=== PATIENT | male | born 1960 | race Caucasian/White ===

== ENCOUNTER 2018-06-10 06:30 | Day surgery (SDC) | payer BC ==
[~2018-06-10] VITALS: Ht 177.8 cm; Wt 154.2 kg
--- NOTE | ~2018-06-10 | OR ---
[facility] [address] [place], [place] [address] Draft DATE OF OPERATION: 06/10/2018 SURGEON: Vega Saldaña MD PREOPERATIVE DIAGNOSES: 1. Personal history of colonic polyps in 2008. 2. Diverticulosis. 3. Internal hemorrhoids. POSTOPERATIVE DIAGNOSES: 1. A 3-10 mm polyps at distal right colon, distal hepatic flexure 90 cm, 78 cm, 32 cm, 22 cm, base at 20 cm and 10 cm. 2. Moderate internal and external hemorrhoids. 3. Minimal to moderate sigmoid diverticulosis. PROCEDURE: Colonoscopy with snare polypectomy at 78 and 20 cm and hot biopsy. ESTIMATED BLOOD LOSS: None. INDICATIONS: Julia is a 57-year-old gentleman with a body mass index of 49. He has colonic polyps back to 2008. He is known to have diverticulosis and internal hemorrhoids. He returns now for followup colonoscopy. He has no lower GI complaints. There is no family history of colon cancer or polyps. In the office, I gave Julia a pamphlet on colonoscopy. Of course, he is quite familiar with that. His last colonoscopy was in 2012. He understands there is risk including, but not limited to gas bloating, crampy abdominal pain, bleeding, perforation, requiring surgery, and missed diagnosis. He also understands the need for IV conscious sedation. He has done well with Versed and fentanyl in the past. He had expressed understanding and wished to proceed. PROCEDURE NOTE: Julia was taken into our endoscopy suite and placed in the left lateral decubitus position. He was given divided doses of 8 mg of Versed and 150 mcg of fentanyl to cover the case. A digital rectal exam was performed. He does have moderate bilateral external hemorrhoids. He had good sphincter tone. I could reach the bottom one-third, maybe one-half of his prostate. It is slightly enlarged and indurated. I did not specifically feel a dominant nodule. After this, the adult colonoscope was introduced and advanced all around into the cecum under direct visualization of camera without PATIENT NAME: JULIA CRISOSTOMO JR OPERATIVE REPORT DATE OF : 56 REPORT #: [id number] PHYSICIAN: VEGA SALDAÑA MD PCP: CLEMENTINA JACOBS MD REPORT IS CONFIDENTIAL AND NOT TO BE RELEASED WITHOUT AUTHORIZATION [facility] [address] [place], [place] [address] Draft difficulty. His prep was overall good. There were a couple of areas of liquid stool, most of that was suctioned out. The scope was then slowly withdrawn. We removed the above mentioned polyps with the help of hot biopsy forceps. We did use our snare at 78 cm and 22 cm. In addition, we did see the diverticulosis in the distal left colon and sigmoid colon. They were minimal to moderate in size, minimal to moderate in number, and scattered about. Once in the rectum, the scope had been retroflexed and he did have some small internal hemorrhoids as well. After this, the gas was suctioned out and colonoscope removed. Julia tolerated the procedure quite well. RECOMMENDATIONS: I will see Julia back in my office in 7 to 14 days to review his results. Vega Saldaña MD ALB/MODL /[id number] cc: MD Chriss Swanson MD John Sislow, MD Copies: VEGA SALDAÑA MD, KEVIN R MD SISLOW, JOHN MD ~ PATIENT NAME: JULIA CRISOSTOMO OPERATIVE REPORT DATE OF : 56 REPORT #: [id number] PHYSICIAN: VEGA SALDAÑA MD PCP: CLEMENTINA JACOBS MD REPORT IS CONFIDENTIAL AND NOT TO BE RELEASED WITHOUT AUTHORIZATION
[~2018-06-10 06:30] MED LIST: ALLOPURINOL300 MG PO; AMLODIPINE BESY10 MG PO; BENICAR HCT 401 EACH PO; CELEBREX200 MG PO; CLONIDINE HCL0.1 MG PO; LEVOTHYROXINE75 MCG PO; TADALAFIL5 M1 PO
[2018-06-10] MEDS ORDERED: LOSARTAN-HCTZ1 EAC2 PO (06:58)
[2018-06-10] MEDS ORDERED: CELEBREX100 MG PO (07:08)
--- NOTE | 2018-06-10 09:16 | NUR ---
06/10/18 0916 Sara Tatum 0817- PT ARRIVES TO PACU ALERT AND ORIENTED. PT REPORTS INTERMITTENT GAS PAINS, CURRENTLY IS NOT REPORTING ANY PAIN OR NAUSEA. RESP EVEN AND UNLABORED. OXYGEN SAT MID 90'S ON 2L VIA NC. 0818- PT IS ABLE TO ROLL HIMSELF TO HIS BACK. TOLERATED WELL. 0822- OXYGEN TURNED OFF. 0827- PT SAT UP IN BED. TOLERATED WELL. REPORTS NO DIZZINESS, NAUSEA, OR PAIN. 0830- PT IS DRINKING WATER. TOLERATING WELL. 0847- PT'S AT THE BEDSIDE. 0849- PT SITTING ON THE EDGE OF THE BED. PT REPORTS NO DIZZINESS, NAUSEA, OR PAIN. 0852- PT IS DRESSING HIMSELF WITH HIS AT THE BEDSIDE. TOLERATING WELL. 0855- PT PASSING A LOT OF FLATUS.
== END 2018-06-10 08:57 | disposition home or self-care (01) ==
LOC: OPS 06:30 → DS 06:30 → OPS 06:45 → DS 06:45 → OPS 08:57 → DS 09:45
PROVIDERS: Colon & Rectal Surgery
PROC: 0DBF8ZZ Excision of Right Large Intestine, Via Natural or Artificial Opening Endoscopic (ICD-10-PCS; 2018-06-10)
PROC: 0DBE8ZZ Excision of Large Intestine, Via Natural or Artificial Opening Endoscopic (ICD-10-PCS; 2018-06-10)
PROC: 0DBL8ZZ Excision of Transverse Colon, Via Natural or Artificial Opening Endoscopic (ICD-10-PCS; principal; 2018-06-10 06:45)
DX: Z12.11 Encounter for screening for malignant neoplasm of colon (principal); D12.3 Benign neoplasm of transverse colon; K51.40 Inflammatory polyps of colon without complications; D12.6 Benign neoplasm of colon, unspecified; K64.8 Other hemorrhoids; K64.4 Residual hemorrhoidal skin tags; K57.30 Diverticulosis of large intestine without perforation or abscess without bleeding; I10 Essential (primary) hypertension; K21.9 Gastro-esophageal reflux disease without esophagitis; G47.30 Sleep apnea, unspecified; M19.90 Unspecified osteoarthritis, unspecified site; L40.9 Psoriasis, unspecified; Z86.010 Personal history of colon polyps; Z98.890 Other specified postprocedural states; Z79.899 Other long term (current) drug therapy
CPT/HCPCS: 99153; G0500; J2250; J3010; J7120

== ENCOUNTER 2021-08-08 07:18 | Day surgery (SDC) | payer BC ==
[~2021-08-08] VITALS: Ht 180.3 cm; Wt 150.0 kg
[~2021-08-08 07:18] MED LIST changes: +CELEBREX100 MG PO; +LOSARTAN-HCTZ1 EAC2 PO
[2021-08-08] MEDS ORDERED: HYDROCODON-ACE1 EAC8 PO (07:43)
[2021-08-08] MEDS ORDERED: DOXYCYCLINE MON50 M1 PO (07:43)
[2021-08-08] MEDS ORDERED: FINASTERIDE5 MG PO (07:44)
[2021-08-08] MEDS ORDERED: TADALAFIL5 M1 PO (07:44)
[2021-08-08] MEDS ORDERED: ADULT LOW DOSE81 MG PO (07:45)
[2021-08-08] MEDS ORDERED: CANDICIDAL CAP1 EACH PO (07:45)
--- NOTE | 2021-08-08 08:52 | NUR ---
08/08/21 0852 Aruna Wolff 0866-PT TO PACU IN LL POSITION. EYES OPEN. PT ASKING QUESTIONS ABOUT PROCEDURE. BREATHING EASY AND UNLABORED. SPO2 >95% ON 3 L O2 VIA NASAL CANULA. PT DENIES PAIN AND NAUSEA. PT EDUCATED ABOUT POC IN PACU AND TO PASS GAS.
--- NOTE | 2021-08-09 08:49 | OR ---
[facility] [address] [place], [place] [address] Signed DATE OF OPERATION: 08/08/2021 SURGEON: Vega Saldaña MD PREOPERATIVE DIAGNOSES: 1. Personal history of colonic polyps 2008. 2. Moderate internal and external hemorrhoids. 3. Diverticulosis. 4. Chronic diarrhea. POSTOPERATIVE DIAGNOSES: 1. Moderate internal and external hemorrhoids. 2. Minimal to moderate diverticulosis. 3. A 4 mm polyp at 8 cm. PROCEDURE: Colonoscopy with hot biopsy. ESTIMATED BLOOD LOSS: None. INDICATIONS: Julia is a 61-year-old obese gentleman, asked to see me for a followup colonoscopy. I helped him with the initial colonoscopy in 2008. He had serrated adenomatous polyp along with internal hemorrhoids and diverticulosis. He returned in five years in 2012 and had hyperplastic polyps with his diverticulosis. He came back again in 2019 and had a villous adenomatous polyp removed at 22 cm along with tubular adenomatous polyps and hyperplastic polyps. Once again, he had internal hemorrhoids and external hemorrhoids with diverticulosis. He always does well with Versed and fentanyl. We asked him to follow up in three years. He said his chronic diarrhea is well controlled with colestipol. He remains obese and has TMJ. He does use CPAP mask. Nevertheless, he does well with Versed and fentanyl each time. He did that again today. He has no family history of colon cancer or polyps. [place] always comes with him to take him home. In the office, I gave him a pamphlet on colonoscopy. He recalls that adenomatous polyps can grow and become cancers over 8-12 years. He spends a significant amount of time on the Internet reading that has made himself very familiar with colonoscopy versus other modes of screening. Given his situation, he needs to maintain a five-year rotation due to his polyps. He is aware there is risk including, but not limited to gas bloating, crampy abdominal pain, bleeding, perforation requiring surgery, and missed diagnosis. He had expressed Electronically Signed By: VEGA SALDAÑA MD 08/09/21 0849 PATIENT NAME: JULIA CRISOSTOMO JR OPERATIVE REPORT DATE OF : 56 REPORT #: [id number] PHYSICIAN: VEGA SALDAÑA MD PCP: ADRIENNE FERNANDEZ MD REPORT IS CONFIDENTIAL AND NOT TO BE RELEASED WITHOUT AUTHORIZATION [address] [address] Signed understanding and wished to proceed. PROCEDURE NOTE: Julia was taken into our endoscopy suite and placed in the left lateral decubitus position. He was given IV sedation with 9 mg of Versed and 150 mcg of fentanyl. He generally wakes up well, but also does well throughout the procedure. A digital rectal exam was performed. He does have moderate-sized external hemorrhoids. He is a large man I really did not feel much with respect to the prostate. The adult colonoscope was introduced and advanced under direct visualization of camera without difficulty. It took a little extra sedation in order to get into the cecum itself. We could easily see the appendiceal orifice and ileocecal valve. We took pictures throughout for photodocumentation. He has diverticula all the way from the proximal transverse colon down to the sigmoid colon. They were moderate in size, few to moderate in number, and scattered about. He had one small 4 mm polyp in his rectum, which we removed with the help of a hot biopsy forceps. Upon retroflexion of scope, he has the minimal to moderate internal hemorrhoid columns. After this, the gas was suctioned out and colonoscope removed. Julia tolerated the procedure quite well. RECOMMENDATIONS: I will see Julia back in my office in 7 to 14 days to review his results. He will need to stay on the five-year rotation. Vega Saldaña MD ALB/MODL /[id number] cc: MD Adrienne Swanson MD Copies: VEGA SALDAÑA MD Electronically Signed By: VEGA SALDAÑA MD 08/09/21 0849 PATIENT NAME: JULIA CRISOSTOMO JR OPERATIVE REPORT DATE OF : 56 REPORT #: [id number] PHYSICIAN: VEGA SALDAÑA MD PCP: ADRIENNE FERNANDEZ MD REPORT IS CONFIDENTIAL AND NOT TO BE RELEASED WITHOUT AUTHORIZATION [address] [place], [place] [address] Signed ADRIENNE FERNANDEZ MD ~ Electronically Signed By: VEGA SALDAÑA MD 08/09/21 0849 PATIENT NAME: CRISOSTOMOJULIA OPERATIVE REPORT DATE OF : 56 REPORT #: [id number] PHYSICIAN: VEGA SALDAÑA MD PCP: ADRIENNE FERNANDEZ MD REPORT IS CONFIDENTIAL AND NOT TO BE RELEASED WITHOUT AUTHORIZATION
== END 2021-08-08 09:20 | disposition home or self-care (01) ==
LOC: OPS 07:18 → DS 07:18 → OPS 08:15
PROVIDERS: ATTEND Colon & Rectal Surgery
PROC: 0DBP8ZX Excision of Rectum, Via Natural or Artificial Opening Endoscopic, Diagnostic (ICD-10-PCS; principal; 2021-08-08 08:20)
DX: Z12.11 Encounter for screening for malignant neoplasm of colon (principal); D12.8 Benign neoplasm of rectum; I10 Essential (primary) hypertension; E78.00 Pure hypercholesterolemia, unspecified; K52.9 Noninfective gastroenteritis and colitis, unspecified; E03.9 Hypothyroidism, unspecified; E66.01 Morbid (severe) obesity due to excess calories; G47.33 Obstructive sleep apnea (adult) (pediatric); Z68.42 Body mass index [BMI] 45.0-49.9, adult; Z79.82 Long term (current) use of aspirin; K64.0 First degree hemorrhoids; K64.4 Residual hemorrhoidal skin tags; K57.30 Diverticulosis of large intestine without perforation or abscess without bleeding
CPT/HCPCS: 99153; G0500; J2250; J3010; J7121

== ENCOUNTER 2021-08-27 07:18 | Day surgery (SDC) | payer BC ==
[~2021-08-27] VITALS: Ht 180.3 cm; Wt 150.0 kg
--- NOTE | ~2021-08-27 | OR ---
[facility] [address] [place], [place] [address] Draft DATE OF OPERATION: 08/27/2021 SURGEON: Wm Ji MD PREOPERATIVE DIAGNOSIS: Left neck mass. POSTOPERATIVE DIAGNOSIS: Left neck mass. PROCEDURE: Excision of left neck mass. ANESTHESIA: Local with standby. PREOPERATIVE HISTORY: Mr. Raymond is a 61-year-old male with a left neck mass. This is in the posterior triangle just beneath the mastoid, little posterior to the mastoid process. This is lobular, soft appearance, impression is a lipoma. This has been growing, very tender and uncomfortable to the patient and he is being taken to the OR for the above-mentioned procedure. PROCEDURE AND FINDINGS: After informed consent, the patient was taken to the OR, left in the gurney semi-sitting, head turned to the right. The patient and procedure verified. Left neck was sterilely prepped and draped. The lesion in question was marked. A transverse incision was made after 1% lidocaine with epi injection. Dissection carried down through skin, subcutaneous tissue, and immediately a multilobular lipoma was identified, removed completely. Hemostasis obtained with needle point cautery. The wound was lavaged with tanner ine. Hemostasis was verified. The wound was then closed with 4-0 interrupted Vicryl subcu and callie in the skin. The skin was cleansed. Neosporin ointment was applied. The patient was tolerated the procedure well, was transported back to same-day surgery in good condition. COMPLICATIONS: No complications. BLOOD LOSS: Minimal. PATIENT NAME: JULIA RAYMOND JR OPERATIVE REPORT DATE OF : 56 REPORT #: [id number] PHYSICIAN: WM JI MD PCP: ADRIENNE FERNANDEZ MD REPORT IS CONFIDENTIAL AND NOT TO BE RELEASED WITHOUT AUTHORIZATION [address] [address] Draft SPECIMEN: To pathology. DRAINS: No drains. Wm Ji MD GC/DARCIL /[id number] Copies: ~ PATIENT NAME: JULIA RAYMOND JR OPERATIVE REPORT DATE OF : 56 REPORT #: [id number] PHYSICIAN: WM JI MD PCP: ADRIENNE FERNANDEZ MD REPORT IS CONFIDENTIAL AND NOT TO BE RELEASED WITHOUT AUTHORIZATION
[~2021-08-27 07:18] MED LIST changes: +ADULT LOW DOSE81 MG PO; +CANDICIDAL CAP1 EACH PO; +DOXYCYCLINE MON50 M1 PO; +FINASTERIDE5 MG PO; +HYDROCODON-ACE1 EAC8 PO
[2021-08-27] MEDS ORDERED: VITAMIN D210 MCG PO (07:44)
[2021-08-27] MEDS ORDERED: CLONIDINE HCL0.2 MG PO (07:44)
[2021-08-27] MEDS ORDERED: ZINC30 MG PO (07:45)
[2021-08-27] MEDS ORDERED: K-TAB ER20 MEQ PO (07:45)
--- NOTE | 2021-08-27 11:11 | NUR ---
1035: PT RETURNS TO DAY SURGERY ROOM 2 FOR DC. VSS, RESP EVEN AND UNLABORED. DENIES PAIN AT THIS TIME. TO DRESS AND PREPARE FOR DC 1055: DC INSTRUCTIONS PROVIDED AND DISCUSSED ORDERED. PT VOICES UNDERSTANDING AND DENIES QUESTIONS AND CONCERNS AT THIS TIME. AMBULATES OFF OF UNIT. NO PHYSICAL S/S OF DISTRESS AT THIS TIME
--- NOTE | 2021-08-28 12:00 | PATH ---
[place] [facility] [address] [place], [place] [address] Signed SPECIMEN(S): A LEFT NECK MASS SPECIMEN SOURCE: A. LEFT NECK MASS CLINICAL HISTORY: Excision left neck mass representing a lipoma. FINAL PATHOLOGIC DIAGNOSIS: Soft tissue mass, left neck, excision: - Fragments of lobulated mature fibroadipose tissue with fat necrosis, consistent with lipoma. NAL:cml:C2NR MICROSCOPIC EXAMINATION: Histologic sections of all submitted blocks are examined by light microscopy. These findings, together with the gross examination, support the pathologic diagnosis. GROSS DESCRIPTION: The specimen, labeled "DE, left neck mass," is received in formalin and consists of several pieces of yellow-toro, soft, lobulated fibroadipose tissue that aggregate measure 3.0 x 2.5 x 0.7 cm. Equipment Sterilizer sections are submitted in cassettes (A1-A2). JS (under the direct supervision of a pathologist) The Gross Description was prepared using a voice recognition system. The report was reviewed for accuracy; however, sound-alike word errors, addition and/or deletions may occur. If there is any question about this report, please contact Client Services. PERFORMING LABORATORY: The technical component was performed by [facility], [address] [place] [id number] (CLIA# [id number]). [facility] [address] [address] (CLIA# [id number]). Diagnostician: Carla Gomes MD Pathologist Electronically Signed 08/28/2021 PATIENT NAME: JULIA CRISOSTOMO PATHOLOGY DATE OF : 56 REPORT #: [id number] PHYSICIAN: [facility] PCP: ADRIENNE FERNANDEZ MD REPORT IS CONFIDENTIAL AND NOT TO BE RELEASED WITHOUT AUTHORIZATION [address] [place], [place] [address] Signed Copies: ~ PATIENT NAME: JULIA CRISOSTOMO PATHOLOGY DATE OF : 56 REPORT #: [id number] PHYSICIAN: [facility] PATH[facility] PCP: ADRIENNE FERNANDEZ MD REPORT IS CONFIDENTIAL AND NOT TO BE RELEASED WITHOUT AUTHORIZATION
== END 2021-08-27 10:55 | disposition home or self-care (01) ==
LOC: DS 07:18 → OPS 07:18 → DS 09:30 → OPS 10:55
PROVIDERS: ATTEND Otolaryngology
PROC: 0JB50ZZ Excision of Left Neck Subcutaneous Tissue and Fascia, Open Approach (ICD-10-PCS; 2021-08-27)
PROC: 0JB50ZZ Excision of Left Neck Subcutaneous Tissue and Fascia, Open Approach (ICD-10-PCS; principal; 2021-08-27 09:30)
DX: D17.0 Benign lipomatous neoplasm of skin and subcutaneous tissue of head, face and neck (principal); I10 Essential (primary) hypertension; E03.9 Hypothyroidism, unspecified; E78.00 Pure hypercholesterolemia, unspecified; E66.9 Obesity, unspecified; G47.33 Obstructive sleep apnea (adult) (pediatric); Z20.822 Contact with and (suspected) exposure to COVID-19
CPT/HCPCS: 87502; C9803; U0003